=== PATIENT | female | born 1980 | race American Indian/Alaskan Native ===

== ENCOUNTER 2018-07-05 09:20 | Emergency (ER) | payer OTHER ==
[~2018-07-05] VITALS: Ht 152.4 cm; Wt 70.3 kg
[2018-07-05 09:24] VITALS: Ht 152.4 cm; Wt 70.3 kg
[2018-07-05 10:27] LABS: BASOPHIL % 0.3 % (0-2); PLATELET COUNT 272 x10^3mcL (130-400)
[2018-07-05 10:29] LABS: RED CELL DISTRIBUTION WIDTH 21.9 % (11.5-14.5)
[2018-07-05 10:41] LABS: CALCIUM 8.1 mg/dL (8.5-10.1); CARBON DIOXIDE 24.8 mmol/L (21-32); CHLORIDE SERUM 104 mmol/L (98-107); CREATININE SERUM 0.6 mg/dL (0.6-1.0); GFR1 > 60 mL/min; GLUCOSE SERUM 83 mg/dL (74-106); POTASSIUM SERUM 3.7 mmol/L (3.5-5.1); SODIUM SERUM 136 mmol/L (136-145)
[2018-07-05 10:46] LABS: ALBUMIN 3.3 g/dL (3.4-5.0); ALKALINE PHOSPHATASE 76 U/L (46-116); ALT/SGPT 23 U/L (14-59); AST/SGOT 18 U/L (15-37); BILIRUBIN TOTAL 0.23 mg/dL (0.20-1.00); LIPASE 99 IU/L (73-393); TOTAL PROTEIN, SERUM 7.7 g/dL (6.4-8.2)
[2018-07-05 10:53] LABS: microscopic required? NO
[2018-07-05 11:39] LABS: AMPHETAMINE QUAL UR NONE DETECTED (See below)
[2018-07-05 11:50] LABS: UA SPECIFIC GRAVITY 1.025 (1.005-1.035); urine erythrocyte NEGATIVE (NEGATIVE)
[2018-07-05 12:29] VITALS: BP 133/87
[2018-07-05 12:35] LABS: rbc morphology (normal/abnorm) ABNORMAL (NORMAL)
[2018-07-05 12:37] LABS: ovalocyte/elliptocyte 1+; target cell (codocyte) 2+
== END 2018-07-05 12:29 | disposition home or self-care (01) ==
LOC: ED 09:20
PROVIDERS: Emergency Medicine
DX: R10.84 Generalized abdominal pain (principal); R11.10 Vomiting, unspecified; R19.7 Diarrhea, unspecified; D64.9 Anemia, unspecified; Z90.49 Acquired absence of other specified parts of digestive tract; Z98.84 Bariatric surgery status
CPT/HCPCS: J2270; J2405

== ENCOUNTER 2018-10-23 09:46 | Emergency (ER) | payer OTHER ==
[~2018-10-23] VITALS: Ht 152.4 cm; Wt 76.8 kg
[2018-10-23 09:49] VITALS: Ht 152.4 cm; Wt 76.8 kg
[2018-10-23 14:48] LABS: BASOPHIL % 0.2 % (0-2); PLATELET COUNT 388 x10^3mcL (130-400)
[2018-10-23 15:10] LABS: RED CELL DISTRIBUTION WIDTH 22.4 % (11.5-14.5)
[2018-10-23 16:22] VITALS: BP 132/82
== END 2018-10-23 16:39 | disposition home or self-care (01) ==
LOC: ED 09:46
PROVIDERS: Emergency Medicine
DX: S30.0XXA Contusion of lower back and pelvis, initial encounter (principal); O26.891 Other specified pregnancy related conditions, first trimester; Z3A.01 Less than 8 weeks gestation of pregnancy; Y09 Assault by unspecified means; Y93.89 Activity, other specified; Y92.89 Other specified places as the place of occurrence of the external cause; Y99.8 Other external cause status
CPT/HCPCS: 36415